=== PATIENT | male | born 1975 | race Two or more races ===

== ENCOUNTER → 2016-12-06 | Day surgery (SDC) | payer BC ==
[2016-12-06 07:49] LABS: BASOPHILS % (AUTO) 0.3 % (0.0-2.0); EOSINOPHILS # (AUTO) 0.3 /CMM (0.0-0.7); EOSINOPHILS % (AUTO) 3.3 % (0.0-6.0); HEMATOCRIT 50 % (39-51); HEMOGLOBIN 16.8 g/dL (13.5-17.5); LYMPHOCYTES % (AUTO) 12.3 % (20.0-44.0); MEAN CORPUSCULAR HEMOGLOBIN 27 PG (26.0-33.0); MEAN CORPUSCULAR HGB CONC 33 g/dl (31.0-36.0); MEAN CORPUSCULAR VOLUME 82 fL (80-96); MONOCYTES # (AUTO) 0.6 /CMM (0.1-1.30); MONOCYTES % (AUTO) 6.8 % (2.0-12.0); NEUTROPHILS # (AUTO) 6.5 /CMM (1.8-8.9); NEUTROPHILS % (AUTO) 77.3 % (43.0-81.0); PLATELET COUNT (AUTO) 269 /CMM (150-450); RDW COEFFICIENT OF VARIATION 13.3 (11.5-15.0); RED BLOOD CELL COUNT(AUTO) 6.14 MIL/uL (4.5-6.0); WHITE BLOOD COUNT (AUTO) 8.4 K/uL (4.3-11.0)
[2016-12-06 07:59] LABS: INR 0.98 (0.87-1.13); PROTHROMBIN TIME 10.6 SECS (9.5-12.7)
[2016-12-06 08:01] LABS: ALBUMIN 3.6 g/dL (3.4-5.0); BILIRUBIN,TOTAL 0.6 mg/dL (0.2-1.0); CALCIUM, SERUM 8.9 mg/dL (8.5-10.1); CREATININE 0.9 mg/dL (0.6-1.3); TOTAL PROTEIN, SERUM 7.6 g/dL (6.4-8.2)
== END ==
LOC: LAB 06:53
PROVIDERS: ATTEND Family Medicine
DX: D50.9 Iron deficiency anemia, unspecified (principal); I10 Essential (primary) hypertension; E55.9 Vitamin D deficiency, unspecified
CPT/HCPCS: 36415; 80053-TC; 80061-TC; 82306; 82728-TC; 82746; 83540-TC; 85025-TC; 85610-TC; 85730-TC

== ENCOUNTER 2017-03-08 06:50 | Outpatient (CLI) | payer BC ==
[2017-03-08 07:47] LABS: BASOPHILS % (AUTO) 0.3 % (0.0-2.0); EOSINOPHILS # (AUTO) 0.3 /CMM (0.0-0.7); EOSINOPHILS % (AUTO) 3.2 % (0.0-6.0); HEMATOCRIT 50 % (39-51); HEMOGLOBIN 16.9 g/dL (13.5-17.5); LYMPHOCYTES # (AUTO) 1.2 /CMM (0.8-4.8); LYMPHOCYTES % (AUTO) 13.8 % (20.0-44.0); MEAN CORPUSCULAR HEMOGLOBIN 28 PG (26.0-33.0); MEAN CORPUSCULAR HGB CONC 34 g/dl (31.0-36.0); MEAN CORPUSCULAR VOLUME 82 fL (80-96); MONOCYTES # (AUTO) 0.6 /CMM (0.1-1.30); MONOCYTES % (AUTO) 7.3 % (2.0-12.0); NEUTROPHILS # (AUTO) 6.7 /CMM (1.8-8.9); NEUTROPHILS % (AUTO) 75.4 % (43.0-81.0); PLATELET COUNT (AUTO) 268 /CMM (150-450); RDW COEFFICIENT OF VARIATION 13.3 (11.5-15.0); RED BLOOD CELL COUNT(AUTO) 6.02 MIL/uL (4.5-6.0); WHITE BLOOD COUNT (AUTO) 8.9 K/uL (4.3-11.0)
[2017-03-08 08:04] LABS: ALBUMIN 3.6 g/dL (3.4-5.0); BILIRUBIN,TOTAL 0.8 mg/dL (0.2-1.0); CALCIUM, SERUM 9.1 mg/dL (8.5-10.1); CREATININE 0.8 mg/dL (0.6-1.3); POTASSIUM 4.2 mmol/L (3.5-5.1); TOTAL PROTEIN, SERUM 7.7 g/dL (6.4-8.2)
[2017-03-08 08:15] LABS: THYROID STIMULATING HORMONE 1.22 uIU/mL (0.358-3.74)
== END 2017-03-08 23:59 | disposition home or self-care (01) ==
LOC: LAB 06:50
PROVIDERS: ATTEND Family Medicine
DX: D64.9 Anemia, unspecified (principal); I10 Essential (primary) hypertension
CPT/HCPCS: 36415; 80053-TC; 80061-TC; 82728-TC; 82746; 83540-TC; 84439-TC; 84443-TC; 85025-TC

== ENCOUNTER 2017-05-23 06:56 | Outpatient (CLI) | payer BC ==
[2017-05-23 07:51] LABS: BASOPHILS % (AUTO) 0.2 % (0.0-2.0); EOSINOPHILS # (AUTO) 0.3 /CMM (0.0-0.7); EOSINOPHILS % (AUTO) 3.1 % (0.0-6.0); HEMATOCRIT 47 % (39-51); HEMOGLOBIN 15.7 g/dL (13.5-17.5); LYMPHOCYTES % (AUTO) 11.1 % (20.0-44.0); MEAN CORPUSCULAR HEMOGLOBIN 27 PG (26.0-33.0); MEAN CORPUSCULAR HGB CONC 33 g/dl (31.0-36.0); MEAN CORPUSCULAR VOLUME 82 fL (80-96); MONOCYTES # (AUTO) 0.6 /CMM (0.1-1.30); NEUTROPHILS # (AUTO) 6.9 /CMM (1.8-8.9); NEUTROPHILS % (AUTO) 78.6 % (43.0-81.0); PLATELET COUNT (AUTO) 232 /CMM (150-450); RDW COEFFICIENT OF VARIATION 13.1 (11.5-15.0); RED BLOOD CELL COUNT(AUTO) 5.75 MIL/uL (4.5-6.0); WHITE BLOOD COUNT (AUTO) 8.7 K/uL (4.3-11.0)
[2017-05-23 08:27] LABS: ALBUMIN 3.6 g/dL (3.4-5.0); BILIRUBIN,TOTAL 0.4 mg/dL (0.2-1.0); CALCIUM, SERUM 8.4 mg/dL (8.5-10.1); CREATININE 0.8 mg/dL (0.6-1.3); POTASSIUM 3.9 mmol/L (3.5-5.1); TOTAL PROTEIN, SERUM 7.4 g/dL (6.4-8.2)
[2017-05-23 08:47] LABS: PROSTATE SPECIFIC ANTIGEN SCR 2.56 ng/mL (0.00-4.00)
[2017-05-24 08:13] LABS: AFP, TUMOR MARKER 2.9 ng/mL (0.0-8.3); CARCINOEMBRYONIC AG (CEA) 0.8 ng/mL (0.0-4.7)
== END 2017-05-23 23:59 | disposition home or self-care (01) ==
LOC: LAB 06:56
PROVIDERS: ATTEND Internal Medicine Gastroenterology
DX: D64.9 Anemia, unspecified (principal); R79.89 Other specified abnormal findings of blood chemistry
CPT/HCPCS: 36415; 80053-TC; 82105; 82378; 84153-TC; 85025-TC; 86301

== ENCOUNTER 2017-08-24 07:01 | Outpatient (CLI) | payer BC ==
[2017-08-24 08:35] LABS: BASOPHILS % (AUTO) 0.3 % (0.0-2.0); EOSINOPHILS # (AUTO) 0.3 /CMM (0.0-0.7); EOSINOPHILS % (AUTO) 2.9 % (0.0-6.0); HEMATOCRIT 48 % (39-51); HEMOGLOBIN 15.8 g/dL (13.5-17.5); LYMPHOCYTES # (AUTO) 1.1 /CMM (0.8-4.8); LYMPHOCYTES % (AUTO) 12.4 % (20.0-44.0); MEAN CORPUSCULAR HEMOGLOBIN 27 PG (26.0-33.0); MEAN CORPUSCULAR HGB CONC 33 g/dl (31.0-36.0); MEAN CORPUSCULAR VOLUME 81 fL (80-96); MONOCYTES # (AUTO) 0.7 /CMM (0.1-1.30); MONOCYTES % (AUTO) 7.4 % (2.0-12.0); NEUTROPHILS # (AUTO) 7.1 /CMM (1.8-8.9); PLATELET COUNT (AUTO) 261 /CMM (150-450); RDW COEFFICIENT OF VARIATION 13.1 (11.5-15.0); RED BLOOD CELL COUNT(AUTO) 5.86 MIL/uL (4.5-6.0); WHITE BLOOD COUNT (AUTO) 9.3 K/uL (4.3-11.0)
[2017-08-24 08:38] LABS: CALCIUM, SERUM 9.2 mg/dL (8.5-10.1); CREATININE 0.8 mg/dL (0.6-1.3); POTASSIUM 3.9 mmol/L (3.5-5.1)
[2017-08-24 09:42] LABS: PROSTATE SPECIFIC ANTIGEN SCR 2.67 ng/mL (0.00-4.00)
[2017-08-24 11:58] LABS: APPEARANCE,URINE CLEAR (CLEAR); BILIRUBIN,URINE NEGATIVE (NEGATIVE); BLOOD, URINE NEGATIVE Ery/uL (NEGATIVE); COLOR,URINE YELLOW (YELLOW); KETONES,URINE NEGATIVE (NEGATIVE); LEUKOCYTE ESTERASE ,URINE NEGATIVE (NEGATIVE); NITRITE, URINE NEGATIVE (NEGATIVE); PROTEIN,URINE NEGATIVE (NEGATIVE); UGLUCOSE NEGATIVE (NEGATIVE); UROBILINOGEN,URINE 0.2 EU/dL (0.2)
== END 2017-08-24 23:59 | disposition home or self-care (01) ==
LOC: LAB 07:01
PROVIDERS: ATTEND Family Medicine
DX: R73.9 Hyperglycemia, unspecified (principal); R31.21 Asymptomatic microscopic hematuria; D72.829 Elevated white blood cell count, unspecified
CPT/HCPCS: 36415; 80048-TC; 81000-TC; 84153-TC; 85025-TC; 87086-TC

== ENCOUNTER 2017-08-29 08:49 | Outpatient (CLI) | payer BC | END 2017-08-29 23:59 | disposition home or self-care (01) | LOC: US 08:49 | PROVIDERS: ATTEND Family Medicine | DX: N20.0 Calculus of kidney (principal); N28.1 Cyst of kidney, acquired | CPT/HCPCS: 76770-TC ==

== ENCOUNTER 2018-01-04 06:51 | Outpatient (CLI) | payer BC ==
[2018-01-04 07:55] LABS: BASOPHILS % (AUTO) 0.2 % (0.0-2.0); EOSINOPHILS % (AUTO) 2.4 % (0.0-6.0); HEMATOCRIT 48 % (39-51); LYMPHOCYTES # (AUTO) 1.1 /CMM (0.8-4.8); LYMPHOCYTES % (AUTO) 12.3 % (20.0-44.0); MEAN CORPUSCULAR HGB CONC 34 g/dl (31.0-36.0); MEAN CORPUSCULAR VOLUME 81 fL (80-96); MONOCYTES # (AUTO) 0.7 /CMM (0.1-1.30); MONOCYTES % (AUTO) 7.3 % (2.0-12.0); NEUTROPHILS # (AUTO) 6.9 /CMM (1.8-8.9); NEUTROPHILS % (AUTO) 77.8 % (43.0-81.0); PLATELET COUNT (AUTO) 246 /CMM (150-450); RDW COEFFICIENT OF VARIATION 13.3 (11.5-15.0); RED BLOOD CELL COUNT(AUTO) 5.88 MIL/uL (4.5-6.0); WHITE BLOOD COUNT (AUTO) 8.9 K/uL (4.3-11.0)
[2018-01-04 08:22] LABS: ALBUMIN 3.5 g/dL (3.4-5.0); BILIRUBIN,TOTAL 0.5 mg/dL (0.2-1.0); CALCIUM, SERUM 8.9 mg/dL (8.5-10.1); CREATININE 0.9 mg/dL (0.6-1.3); POTASSIUM 3.6 mmol/L (3.5-5.1); TOTAL PROTEIN, SERUM 7.4 g/dL (6.4-8.2)
[2018-01-04 08:30] LABS: THYROID STIMULATING HORMONE 1.87 uIU/mL (0.358-3.74)
[2018-01-04 09:09] LABS: APPEARANCE,URINE CLEAR (CLEAR); BILIRUBIN,URINE NEGATIVE (NEGATIVE); BLOOD, URINE NEGATIVE Ery/uL (NEGATIVE); COLOR,URINE YELLOW (YELLOW); KETONES,URINE NEGATIVE (NEGATIVE); LEUKOCYTE ESTERASE ,URINE NEGATIVE (NEGATIVE); NITRITE, URINE NEGATIVE (NEGATIVE); PROTEIN,URINE NEGATIVE (NEGATIVE); UGLUCOSE NEGATIVE (NEGATIVE); UROBILINOGEN,URINE 0.2 EU/dL (0.2)
== END 2018-01-04 23:59 | disposition home or self-care (01) ==
LOC: LAB 06:51
PROVIDERS: ATTEND Family Medicine
DX: I10 Essential (primary) hypertension (principal)
CPT/HCPCS: 36415; 80053-TC; 80061-TC; 81000-TC; 82306; 84439-TC; 84443-TC; 85025-TC

== ENCOUNTER 2020-08-09 10:29 | Emergency (ER) | payer BC, OTHER ==
[~2020-08-09] VITALS: Ht 165.1 cm; Wt 96.2 kg
[2020-08-09 10:36] VITALS: BP 180/83
== END 2020-08-09 10:49 | disposition home or self-care (01) ==
LOC: ER 10:33
DX: Z20.828 Contact with and (suspected) exposure to other viral communicable diseases (principal); F84.0 Autistic disorder
CPT/HCPCS: 99283; C9803; U0003

== ENCOUNTER 2021-02-07 08:06 | Outpatient (CLI) | payer BC | END 2021-02-07 23:59 | disposition home or self-care (01) | LOC: LAB 08:06 | PROVIDERS: ATTEND Family Medicine | DX: Z76.89 Persons encountering health services in other specified circumstances (principal); Z20.822 Contact with and (suspected) exposure to COVID-19 | CPT/HCPCS: C9803; U0003 ==

== ENCOUNTER 2022-06-12 10:49 | Emergency (ER) | payer BC, OTHER ==
[~2022-06-12] VITALS: Ht 165.1 cm; Wt 108.9 kg
--- NOTE | 2022-06-12 11:15 | NUR ---
BIBS C/O GENERALIZED RASH X 1 MONTH. AMBULATORY, AAOX4, PLACED ON BED, BREATHING EVEN AND UNLABORED.
--- NOTE | 2022-06-12 11:25 | NUR ---
AT BED SIDE
[2022-06-12] MEDS ORDERED: PERM60CR6 TP ×2 (11:28→12:00)
[2022-06-12] MEDS ORDERED: DIPH25CA83 PO (11:28)
[2022-06-12] MEDS ORDERED: DIPH25TA25 PO (12:00)
--- NOTE | 2022-06-12 12:05 | NUR ---
Patient discharged to home in stable condition. Written and verbal after care instructions given. Patient verbalizes understanding of instruction.
[2022-06-12 12:22] VITALS: BP 139/79
== END 2022-06-12 12:05 | disposition home or self-care (01) ==
LOC: ER 10:55
DX: L30.9 Dermatitis, unspecified (principal); I10 Essential (primary) hypertension; Z60.2 Problems related to living alone

== ENCOUNTER 2023-10-15 13:54 | Inpatient (IN) | payer BC, OTHER ==
[~2023-10-15] VITALS: Ht 165.1 cm; Wt 87.1 kg
[~2023-10-15 13:54] MED LIST: DIPH25CA83 PO; DIPH25TA25 PO; PERM60CR6 TP
[2023-10-15 15:25] LABS: INR 1.25 (0.91-1.10); PROTHROMBIN TIME 13.1 SECS (9.2-11.1)
[2023-10-15 15:31] LABS: BASOPHILS % (AUTO) 0.6 % (0.0-2.0); EOSINOPHILS % (AUTO) 0.2 % (0.0-6.0); LYMPHOCYTES # (AUTO) 0.5 K/uL (0.8-4.8); LYMPHOCYTES % (AUTO) 7.1 % (20.0-44.0); MEAN CORPUSCULAR HEMOGLOBIN 12 PG (26.0-33.0); MEAN CORPUSCULAR HGB CONC 24 g/dl (31.0-36.0); MEAN CORPUSCULAR VOLUME 47 fL (80-96); MONOCYTES # (AUTO) 0.5 K/uL (0.1-1.30); MONOCYTES % (AUTO) 6.4 % (2.0-12.0); NEUTROPHILS # (AUTO) 6.7 K/uL (1.8-8.9); NEUTROPHILS % (AUTO) 85.7 % (43.0-81.0); PLATELET COUNT (AUTO) 264 K/uL (150-450); RED BLOOD CELL COUNT(AUTO) 2.77 MIL/uL (4.5-6.0); RED CELL DISTRIBUTION WIDTH 22.8 % (11.5-15.0); WHITE BLOOD COUNT (AUTO) 7.8 K/uL (4.3-11.0)
[2023-10-15 15:38] LABS: ALANINE AMINOTRANSFERASE 6 U/L (12-78); ALBUMIN 2.9 g/dL (3.4-5.0); ALKALINE PHOSPHATASE 51 U/L (46-116); ASPARTATE AMINOTRANSFERASE 7 U/L (15-37); BILIRUBIN,DIRECT 0.1 mg/dL (0.0-0.2); BILIRUBIN,TOTAL 0.4 mg/dL (0.2-1.0); CALCIUM, SERUM 8.3 mg/dL (8.5-10.1); CARBON DIOXIDE 21 mmol/L (21-32); CHLORIDE 103 mmol/L (98-107); CREATININE 0.9 mg/dL (0.6-1.3); GLUCOSE 173 mg/dL (74-106); LIPASE 24 U/L (16-77); POTASSIUM 3.5 mmol/L (3.5-5.1); SODIUM SERUM 137 mmol/L (136-145); TOTAL PROTEIN, SERUM 6.7 g/dL (6.4-8.2); UREA NITROGEN, BLOOD 10 mg/dL (7-18)
[2023-10-15 15:40] LABS: HEMOGLOBIN 3.2 g/dL (13.5-17.5)
[2023-10-15 15:41] LABS: HEMATOCRIT 13 % (39-51)
[2023-10-15 16:58] LABS: THYROID STIMULATING HORMONE 1.484 uIU/mL (0.358-3.74)
[2023-10-15] MEDS ORDERED: Z GUARD REMEDY 4 OZ OINT TP PRN (18:00)
[2023-10-15] MEDS ORDERED: ONDANSETRON HCL/PF 4 MG/2 ML VIAL IVP PRN (18:00)
[2023-10-15] MEDS ORDERED: ACETAMINOPHEN 325 MG TABLET PO PRN (18:00)
[2023-10-15] MEDS ORDERED: MAGNESIUM HYDROXIDE 30 ML UDC PO PRN (18:00)
[2023-10-15 19:18] LABS: ANISOCYTOSIS 1+; BAND % (MANUAL) 1 % (0.0-5.0); EOSINOPHILS % (MANUAL) 2 % (0-4); HYPOCHROMASIA 1+; LYMPHOCYTES % (MANUAL) 6 % (16-48); MONOCYTES % (MANUAL) 3 % (0-11.0); NEUTROPHILS % (MANUAL) 88 (42-76); PLATELET ESTIMATE ADEQUATE
[2023-10-15 19:19] LABS: OVALOCYTES 1+; ROULEAUX 1+; TARGET CELLS 1+
[2023-10-15] MEDS ORDERED: PEG 3350/NA SULF,BICARB,CL/KCL 4,000 ML BOTTLE PO ONE (19:30)
[2023-10-15 20:00] VITALS: BP 129/65; TEMP 99.3; O2SAT 97
[2023-10-15] MEDS: SOD FERRIC GLUC 125 MG in IV NS 0.9% 100 ML IV SCH (21:02)
[2023-10-15] MEDS ORDERED: diphenhydrAMINE HCL 25 MG CAPSULE PO ONE (23:00)
[2023-10-15] MEDS ORDERED: FAMOTIDINE (20 MG) 20 MG TABLET PO ONE (23:00)
[2023-10-16] VITALS (17 sets, daily range): BP systolic 100–165; BP diastolic 49–83; TEMP 98–99.3; O2SAT 95–99
[2023-10-16] MEDS: PANTOPRAZOLE 40 MG TABLET.DR PO SCH (07:38)
[2023-10-16 11:15] LABS: CALCIUM, SERUM 8.2 mg/dL (8.5-10.1); CREATININE 0.5 mg/dL (0.6-1.3); MAGNESIUM 2.2 mg/dL (1.8-2.4); PHOSPHORUS 2.8 mg/dL (2.5-4.9); POTASSIUM 3.8 mmol/L (3.5-5.1)
[2023-10-16 11:46] LABS: BASOPHILS % (AUTO) 0.3 % (0.0-2.0); EOSINOPHILS % (AUTO) 0.3 % (0.0-6.0); HEMATOCRIT 23 % (39-51); LYMPHOCYTES # (AUTO) 0.8 K/uL (0.8-4.8); LYMPHOCYTES % (AUTO) 8.4 % (20.0-44.0); MEAN CORPUSCULAR HEMOGLOBIN 18 PG (26.0-33.0); MEAN CORPUSCULAR HGB CONC 29 g/dl (31.0-36.0); MEAN CORPUSCULAR VOLUME 62 fL (80-96); MONOCYTES # (AUTO) 0.7 K/uL (0.1-1.30); MONOCYTES % (AUTO) 6.9 % (2.0-12.0); NEUTROPHILS # (AUTO) 8.5 K/uL (1.8-8.9); NEUTROPHILS % (AUTO) 84.1 % (43.0-81.0); PLATELET COUNT (AUTO) 258 K/uL (150-450); RED BLOOD CELL COUNT(AUTO) 3.75 MIL/uL (4.5-6.0); RED CELL DISTRIBUTION WIDTH 41.7 % (11.5-15.0); WHITE BLOOD COUNT (AUTO) 10.1 K/uL (4.3-11.0)
[2023-10-16 11:50] LABS: HEMOGLOBIN 6.8 g/dL (13.5-17.5)
[2023-10-16 13:36] LABS: ANISOCYTOSIS 1+; BASOPHILS % (MANUAL) 0 % (0.0-2.0); EOSINOPHILS % (MANUAL) 0 % (0-4); HYPOCHROMASIA 2+; LYMPHOCYTES % (MANUAL) 11 % (16-48); MONOCYTES % (MANUAL) 5 % (0-11.0); NEUTROPHILS % (MANUAL) 84 (42-76); OVALOCYTES 1+; PLATELET ESTIMATE ADEQUATE
[2023-10-16] MEDS: SOD FERRIC GLUC 125 MG in IV NS 0.9% 100 ML IV SCH (13:57)
[2023-10-16] MEDS ORDERED: ANESTHESIA TRAY IN PYXIS 1 EA TRAY MC ONE (17:45)
[2023-10-16] MEDS ORDERED: METHYLENE BLUE 10 ML VIAL ONE (20:39)
[2023-10-17] VITALS: BP 138/74; TEMP 98.1; O2SAT 99
[2023-10-17 00:16] VITALS: BP 138/74; TEMP 98.1; O2SAT 99
[2023-10-17 05:03] VITALS: BP 118/63; TEMP 97.9; O2SAT 98
[2023-10-17 07:00] VITALS: BP 127/72; TEMP 98.2; O2SAT 95
[2023-10-17 07:30] LABS: BASOPHILS % (AUTO) 0.3 % (0.0-2.0); EOSINOPHILS # (AUTO) 0.1 K/uL (0.0-0.7); EOSINOPHILS % (AUTO) 0.6 % (0.0-6.0); HEMATOCRIT 28 % (39-51); HEMOGLOBIN 8.4 g/dL (13.5-17.5); LYMPHOCYTES # (AUTO) 0.9 K/uL (0.8-4.8); MEAN CORPUSCULAR HEMOGLOBIN 19 PG (26.0-33.0); MEAN CORPUSCULAR HGB CONC 30 g/dl (31.0-36.0); MEAN CORPUSCULAR VOLUME 65 fL (80-96); MONOCYTES # (AUTO) 0.7 K/uL (0.1-1.30); MONOCYTES % (AUTO) 6.4 % (2.0-12.0); NEUTROPHILS # (AUTO) 8.6 K/uL (1.8-8.9); NEUTROPHILS % (AUTO) 83.7 % (43.0-81.0); PLATELET COUNT (AUTO) 258 K/uL (150-450); RED BLOOD CELL COUNT(AUTO) 4.33 MIL/uL (4.5-6.0); RED CELL DISTRIBUTION WIDTH 41.6 % (11.5-15.0); WHITE BLOOD COUNT (AUTO) 10.2 K/uL (4.3-11.0)
[2023-10-17 07:49] LABS: CALCIUM, SERUM 8.5 mg/dL (8.5-10.1); CREATININE 0.6 mg/dL (0.6-1.3); MAGNESIUM 2.1 mg/dL (1.8-2.4); PHOSPHORUS 3.3 mg/dL (2.5-4.9); POTASSIUM 3.9 mmol/L (3.5-5.1)
[2023-10-17] MEDS: PANTOPRAZOLE 40 MG TABLET.DR PO SCH (08:31)
[2023-10-17 11:34] LABS: ANISOCYTOSIS 1+; BASOPHILS % (MANUAL) 0 % (0.0-2.0); EOSINOPHILS % (MANUAL) 2 % (0-4); HYPOCHROMASIA 1+; LYMPHOCYTES % (MANUAL) 10 % (16-48); MONOCYTES % (MANUAL) 7 % (0-11.0); NEUTROPHILS % (MANUAL) 81 (42-76); OVALOCYTES 1+; PLATELET ESTIMATE ADEQUATE
[2023-10-17] MEDS: SOD FERRIC GLUC 125 MG in IV NS 0.9% 100 ML IV SCH (14:21)
[2023-10-17 15:40] LABS: HEMOGLOBIN 8.7 g/dL (13.5-17.5)
[2023-10-17 16:00] VITALS: BP 140/69; TEMP 98.4; O2SAT 96
[2023-10-17 16:33] LABS: THYROID STIMULATING HORMONE 1.317 uIU/mL (0.358-3.74)
[2023-10-17 20:00] VITALS: BP 131/69; TEMP 97.9; O2SAT 96
[2023-10-18] VITALS (13 sets, daily range): BP systolic 121–140; BP diastolic 66–100; TEMP 97.6–98.8; O2SAT 90–98
[2023-10-18 07:10] LABS: OCCULT BLOOD STOOL NEGATIVE (NEGATIVE)
[2023-10-18 07:12] LABS: BASOPHILS % (AUTO) 0.5 % (0.0-2.0); EOSINOPHILS # (AUTO) 0.2 K/uL (0.0-0.7); EOSINOPHILS % (AUTO) 2.1 % (0.0-6.0); HEMATOCRIT 29 % (39-51); HEMOGLOBIN 8.6 g/dL (13.5-17.5); LYMPHOCYTES % (AUTO) 10.4 % (20.0-44.0); MEAN CORPUSCULAR HEMOGLOBIN 20 PG (26.0-33.0); MEAN CORPUSCULAR HGB CONC 30 g/dl (31.0-36.0); MEAN CORPUSCULAR VOLUME 66 fL (80-96); MONOCYTES # (AUTO) 0.8 K/uL (0.1-1.30); MONOCYTES % (AUTO) 8.2 % (2.0-12.0); NEUTROPHILS # (AUTO) 7.3 K/uL (1.8-8.9); NEUTROPHILS % (AUTO) 78.8 % (43.0-81.0); PLATELET COUNT (AUTO) 235 K/uL (150-450); RED BLOOD CELL COUNT(AUTO) 4.39 MIL/uL (4.5-6.0); RED CELL DISTRIBUTION WIDTH 41.9 % (11.5-15.0); WHITE BLOOD COUNT (AUTO) 9.2 K/uL (4.3-11.0)
[2023-10-18 07:30] LABS: CALCIUM, SERUM 6.9 mg/dL (8.5-10.1); CREATININE 0.6 mg/dL (0.6-1.3); MAGNESIUM 1.9 mg/dL (1.8-2.4); PHOSPHORUS 4.4 mg/dL (2.5-4.9); POTASSIUM 3.5 mmol/L (3.5-5.1)
[2023-10-18] MEDS: PANTOPRAZOLE 40 MG TABLET.DR PO SCH (08:40)
[2023-10-18] MEDS ORDERED: LIDOCAINE 1%-EPI 1:100,000 20 ML VIAL ONE (10:29)
[2023-10-18] MEDS ORDERED: BUPIVACAINE 0.5 % PF 150 MG/30 ML VIAL ONE (10:30)
[2023-10-18 11:11] LABS: IMMUNOGLOBULIN A, SERUM 121 mg/dL (90-386); IMMUNOGLOBULIN G, SERUM 745 mg/dL (603-1613); IMMUNOGLOBULIN M, SERUM 132 mg/dL (20-172)
[2023-10-18 12:02] LABS: BASOPHILS % (MANUAL) 0 % (0.0-2.0); EOSINOPHILS % (MANUAL) 1 % (0-4); LYMPHOCYTES % (MANUAL) 8 % (16-48); MONOCYTES % (MANUAL) 6 % (0-11.0); NEUTROPHILS % (MANUAL) 85 (42-76)
[2023-10-18 12:03] LABS: ANISOCYTOSIS 1+; HYPOCHROMASIA 1+; OVALOCYTES 1+; PLATELET ESTIMATE ADEQUATE
[2023-10-18 12:07] LABS: *SPE A/G RATIO 0.9 (0.7-1.7); *SPE ALBUMIN 2.6 g/dL (2.9-4.4); *SPE ALPHA-1-GLOBULIN 0.4 g/dL (0.0-0.4); *SPE ALPHA-2-GLOBULIN 0.7 g/dL (0.4-1.0); *SPE BETA GLOBULIN 0.9 g/dL (0.7-1.3); *SPE GLOBULIN, TOTAL 2.9 g/dL (2.2-3.9); *SPE M-SPIKE Not Observed g/dL (Not Observed); *SPE PROTEIN TOTAL 5.5 g/dL (6.0-8.5); *SPEGAMMA GLOBULIN 0.9 g/dL (0.4-1.8)
[2023-10-18] MEDS ORDERED: ANESTHESIA TRAY IN PYXIS 1 EA TRAY MC ONE (12:08)
[2023-10-18] MEDS ORDERED: FENTANYL PF 250MCG/5ML AMPUL ONE ×2 (12:29→13:42)
[2023-10-18] MEDS ORDERED: ROCURONIUM BROMIDE 50 MG/5 ML ONE ×2 (12:30→13:24)
[2023-10-18] MEDS ORDERED: FAMOTIDINE/PF INJ 20 MG/2 ML VIAL IV ONE (12:30)
[2023-10-18] MEDS ORDERED: MIDAZOLAM HCL 2 MG/2ML VIAL ONE (12:30)
[2023-10-18] MEDS ORDERED: HYDROMORPHONE INJ 2 MG/ML DISP.SYRIN ONE (12:30)
[2023-10-18] MEDS ORDERED: METRONIDAZOLE 500MG/ NS 100ML 100 ML IV ONE (13:08)
[2023-10-18] MEDS ORDERED: PHYTONADIONE INJ 10 MG/1 ML AMPUL ONE (13:19)
[2023-10-18] MEDS ORDERED: TRANEXAMIC ACID 1,000 MG/10 ML VIAL ONE (13:24)
[2023-10-18] MEDS ORDERED: CIPROFLOXACIN IV RTU 400 MG in PREMIX 1 EA IV ONE (13:30)
[2023-10-18] MEDS ORDERED: ALBUMIN 25% 50 ML IV ONE (13:42)
[2023-10-18] MEDS: SOD FERRIC GLUC 125 MG in IV NS 0.9% 100 ML IV SCH (14:00)
[2023-10-18] MEDS ORDERED: BACITRACIN ZINC OINT (15 GM) 15 GM TUBE TP ONE (15:06)
[2023-10-18] MEDS ORDERED: IV NS 0.9% 250 ML IV PRN (17:00)
[2023-10-18] MEDS: HYDROMORPHONE INJ 2 MG/ML DISP.SYRIN IV PRN ×2 (18:11→21:26)
[2023-10-18] MEDS ORDERED: PIPERACILLIN /TAZOBACTAM 3.375 G in IV D5W 100 ML IV SCH (21:00)
[2023-10-18] MEDS: PIPERACILLIN /TAZOBACTAM 3.375 G in IV D5W 100 ML IV SCH (21:46)
[2023-10-19] VITALS (27 sets, daily range): BP systolic 133–149; BP diastolic 68–86; TEMP 98.2–98.7; O2SAT 90–97
[2023-10-19 01:07] LABS: FOLIC ACID 9.7 ng/mL (>3.0)
[2023-10-19] MEDS: IV LR 1000 ML 1,000 ML IV SCH ×4 (01:25→21:30)
[2023-10-19] MEDS: PIPERACILLIN /TAZOBACTAM 3.375 G in IV D5W 100 ML IV SCH ×3 (04:23→20:11)
[2023-10-19] MEDS: HYDROMORPHONE INJ 2 MG/ML DISP.SYRIN IV PRN ×4 (05:02→17:35)
[2023-10-19] MEDS ORDERED: SODIUM BICARBONATE SYR 50 MEQ/50 ML DISP.SYRIN ONE (06:33)
[2023-10-19] MEDS: PANTOPRAZOLE 40 MG TABLET.DR PO SCH (07:30)
[2023-10-19 07:44] LABS: BASOPHILS % (AUTO) 0.2 % (0.0-2.0); HEMATOCRIT 33 % (39-51); HEMOGLOBIN 9.7 g/dL (13.5-17.5); LYMPHOCYTES % (AUTO) 7.9 % (20.0-44.0); MEAN CORPUSCULAR HEMOGLOBIN 20 PG (26.0-33.0); MEAN CORPUSCULAR HGB CONC 30 g/dl (31.0-36.0); MEAN CORPUSCULAR VOLUME 69 fL (80-96); MONOCYTES # (AUTO) 0.9 K/uL (0.1-1.30); MONOCYTES % (AUTO) 6.9 % (2.0-12.0); NEUTROPHILS # (AUTO) 10.6 K/uL (1.8-8.9); PLATELET COUNT (AUTO) 251 K/uL (150-450); RED BLOOD CELL COUNT(AUTO) 4.77 MIL/uL (4.5-6.0); RED CELL DISTRIBUTION WIDTH 41.7 % (11.5-15.0); WHITE BLOOD COUNT (AUTO) 12.5 K/uL (4.3-11.0)
[2023-10-19 08:15] LABS: CALCIUM, SERUM 8.4 mg/dL (8.5-10.1); CREATININE 0.7 mg/dL (0.6-1.3); MAGNESIUM 1.9 mg/dL (1.8-2.4); PHOSPHORUS 4.1 mg/dL (2.5-4.9); POTASSIUM 3.8 mmol/L (3.5-5.1)
[2023-10-19] MEDS: PANTOPRAZOLE 40 MG VIAL IV SCH (11:34)
[2023-10-19] MEDS: SOD FERRIC GLUC 125 MG in IV NS 0.9% 100 ML IV SCH (14:40)
[2023-10-20] VITALS (24 sets, daily range): BP systolic 136–153; BP diastolic 63–80; TEMP 98.2–98.8; O2SAT 90–97
[2023-10-20] MEDS: IV LR 1000 ML 1,000 ML IV SCH ×2 (00:11→05:28)
[2023-10-20] MEDS: HYDROMORPHONE INJ 2 MG/ML DISP.SYRIN IV PRN (02:31)
[2023-10-20 04:44] LABS: BASOPHILS % (AUTO) 0.4 % (0.0-2.0); EOSINOPHILS # (AUTO) 0.2 K/uL (0.0-0.7); EOSINOPHILS % (AUTO) 1.9 % (0.0-6.0); HEMATOCRIT 32 % (39-51); HEMOGLOBIN 9.5 g/dL (13.5-17.5); LYMPHOCYTES # (AUTO) 0.9 K/uL (0.8-4.8); MEAN CORPUSCULAR HEMOGLOBIN 21 PG (26.0-33.0); MEAN CORPUSCULAR HGB CONC 30 g/dl (31.0-36.0); MEAN CORPUSCULAR VOLUME 71 fL (80-96); MONOCYTES # (AUTO) 0.8 K/uL (0.1-1.30); MONOCYTES % (AUTO) 7.5 % (2.0-12.0); NEUTROPHILS # (AUTO) 8.2 K/uL (1.8-8.9); NEUTROPHILS % (AUTO) 81.2 % (43.0-81.0); PLATELET COUNT (AUTO) 215 K/uL (150-450); RED CELL DISTRIBUTION WIDTH 42.3 % (11.5-15.0); WHITE BLOOD COUNT (AUTO) 10.1 K/uL (4.3-11.0)
[2023-10-20] MEDS: PIPERACILLIN /TAZOBACTAM 3.375 G in IV D5W 100 ML IV SCH ×2 (04:46→12:35)
[2023-10-20 05:00] LABS: CALCIUM, SERUM 8.6 mg/dL (8.5-10.1); CREATININE 0.8 mg/dL (0.6-1.3); MAGNESIUM 1.9 mg/dL (1.8-2.4); PHOSPHORUS 2.9 mg/dL (2.5-4.9); POTASSIUM 3.8 mmol/L (3.5-5.1)
[2023-10-20] MEDS: PANTOPRAZOLE 40 MG VIAL IV SCH (09:08)
[2023-10-20] MEDS: IV LR 1000 ML 1,000 ML IV PRN ×2 (16:03→20:22)
[2023-10-20] MEDS ORDERED: ZOLPIDEM TARTRATE 5 MG TABLET PO PRN ×2 (21:00)
[2023-10-21] VITALS (21 sets, daily range): BP systolic 126–146; BP diastolic 68–82; TEMP 98–98.7; O2SAT 84–98
[2023-10-21] MEDS: IV LR 1000 ML 1,000 ML IV PRN ×4 (02:44→23:28)
[2023-10-21] MEDS: HYDROMORPHONE INJ 2 MG/ML DISP.SYRIN IV PRN ×2 (02:52→08:50)
[2023-10-21 05:15] LABS: BASOPHILS % (AUTO) 0.4 % (0.0-2.0); EOSINOPHILS # (AUTO) 0.3 K/uL (0.0-0.7); EOSINOPHILS % (AUTO) 3.5 % (0.0-6.0); HEMATOCRIT 34 % (39-51); HEMOGLOBIN 9.9 g/dL (13.5-17.5); LYMPHOCYTES % (AUTO) 9.9 % (20.0-44.0); MEAN CORPUSCULAR HEMOGLOBIN 21 PG (26.0-33.0); MEAN CORPUSCULAR HGB CONC 30 g/dl (31.0-36.0); MEAN CORPUSCULAR VOLUME 71 fL (80-96); MONOCYTES # (AUTO) 0.6 K/uL (0.1-1.30); MONOCYTES % (AUTO) 6.5 % (2.0-12.0); NEUTROPHILS # (AUTO) 7.7 K/uL (1.8-8.9); NEUTROPHILS % (AUTO) 79.7 % (43.0-81.0); PLATELET COUNT (AUTO) 218 K/uL (150-450); RED BLOOD CELL COUNT(AUTO) 4.71 MIL/uL (4.5-6.0); RED CELL DISTRIBUTION WIDTH 43.2 % (11.5-15.0); WHITE BLOOD COUNT (AUTO) 9.6 K/uL (4.3-11.0)
[2023-10-21 05:47] LABS: CALCIUM, SERUM 8.4 mg/dL (8.5-10.1); CREATININE 0.5 mg/dL (0.6-1.3); MAGNESIUM 1.7 mg/dL (1.8-2.4); PHOSPHORUS 3.4 mg/dL (2.5-4.9); POTASSIUM 3.5 mmol/L (3.5-5.1)
[2023-10-21] MEDS: PANTOPRAZOLE 40 MG VIAL IV SCH (08:50)
[2023-10-21] MEDS: Magnesium 1GM/D5W 100ML PREMIX 100 ML IV SCH ×2 (10:02→11:30)
[2023-10-22] MEDS: IV LR 1000 ML 1,000 ML IV PRN ×3 (05:49→20:18)
[2023-10-22 07:30] VITALS: BP 141/86; TEMP 97.9; O2SAT 96
[2023-10-22 07:31] LABS: BASOPHILS % (AUTO) 0.3 % (0.0-2.0); EOSINOPHILS # (AUTO) 0.4 K/uL (0.0-0.7); HEMATOCRIT 36 % (39-51); HEMOGLOBIN 10.7 g/dL (13.5-17.5); LYMPHOCYTES # (AUTO) 0.8 K/uL (0.8-4.8); LYMPHOCYTES % (AUTO) 10.4 % (20.0-44.0); MEAN CORPUSCULAR HEMOGLOBIN 22 PG (26.0-33.0); MEAN CORPUSCULAR HGB CONC 30 g/dl (31.0-36.0); MEAN CORPUSCULAR VOLUME 74 fL (80-96); MONOCYTES # (AUTO) 0.5 K/uL (0.1-1.30); MONOCYTES % (AUTO) 6.3 % (2.0-12.0); NEUTROPHILS # (AUTO) 6.2 K/uL (1.8-8.9); PLATELET COUNT (AUTO) 223 K/uL (150-450); RED BLOOD CELL COUNT(AUTO) 4.86 MIL/uL (4.5-6.0); RED CELL DISTRIBUTION WIDTH 43.1 % (11.5-15.0)
[2023-10-22 07:36] LABS: CALCIUM, SERUM 8.1 mg/dL (8.5-10.1); CREATININE 0.5 mg/dL (0.6-1.3); PHOSPHORUS 3.3 mg/dL (2.5-4.9); POTASSIUM 3.5 mmol/L (3.5-5.1)
[2023-10-22 08:05] LABS: FERRITIN 125 ng/mL (8-388)
[2023-10-22 08:30] LABS: IRON, SERUM 23 ug/dl (50-175); TOTAL IRON BINDING CAPACITY 189 ug/dl (250-450)
[2023-10-22 08:43] LABS: ANISOCYTOSIS 1+; BASOPHILS % (MANUAL) 0 % (0.0-2.0); EOSINOPHILS % (MANUAL) 0 % (0-4); HYPOCHROMASIA 1+; LYMPHOCYTES % (MANUAL) 14 % (16-48); MONOCYTES % (MANUAL) 5 % (0-11.0); NEUTROPHILS % (MANUAL) 81 (42-76); OVALOCYTES 1+; PLATELET ESTIMATE ADEQUATE
[2023-10-22] MEDS: PANTOPRAZOLE 40 MG VIAL IV SCH (09:41)
[2023-10-22] MEDS: DOCUSATE SODIUM 100 MG CAPSULE PO SCH ×2 (09:41→17:38)
[2023-10-22] MEDS: SOD FERRIC GLUC 125 MG in IV NS 0.9% 100 ML IV SCH (15:01)
[2023-10-22 16:00] VITALS: BP 139/83; TEMP 98.1; O2SAT 96
[2023-10-22 20:00] VITALS: BP 142/70; TEMP 98.1; O2SAT 95; O2SAT 96
[2023-10-23] MEDS: IV LR 1000 ML 1,000 ML IV PRN ×3 (02:44→18:36)
[2023-10-23 08:00] VITALS: BP 137/80; TEMP 98; O2SAT 95
[2023-10-23] MEDS: DOCUSATE SODIUM 100 MG CAPSULE PO SCH ×2 (08:29→16:06)
[2023-10-23] MEDS: PANTOPRAZOLE 40 MG VIAL IV SCH (08:29)
[2023-10-23] MEDS: SOD FERRIC GLUC 125 MG in IV NS 0.9% 100 ML IV SCH (14:42)
[2023-10-23 16:00] VITALS: BP 129/75; TEMP 97.9; O2SAT 95
[2023-10-23 20:00] VITALS: BP 135/81; TEMP 98; O2SAT 96
[2023-10-23 23:39] VITALS: BP 135/81; TEMP 98; O2SAT 95
[2023-10-24] MEDS: IV LR 1000 ML 1,000 ML IV PRN ×2 (01:27→08:58)
[2023-10-24 04:00] VITALS: BP 131/77; TEMP 97.8; O2SAT 95
[2023-10-24 07:02] LABS: BASOPHILS % (AUTO) 0.5 % (0.0-2.0); EOSINOPHILS # (AUTO) 0.6 K/uL (0.0-0.7); EOSINOPHILS % (AUTO) 8.2 % (0.0-6.0); HEMATOCRIT 34 % (39-51); HEMOGLOBIN 10.5 g/dL (13.5-17.5); LYMPHOCYTES # (AUTO) 0.9 K/uL (0.8-4.8); LYMPHOCYTES % (AUTO) 13.9 % (20.0-44.0); MEAN CORPUSCULAR HEMOGLOBIN 23 PG (26.0-33.0); MEAN CORPUSCULAR HGB CONC 31 g/dl (31.0-36.0); MEAN CORPUSCULAR VOLUME 74 fL (80-96); MONOCYTES # (AUTO) 0.5 K/uL (0.1-1.30); MONOCYTES % (AUTO) 7.7 % (2.0-12.0); NEUTROPHILS # (AUTO) 4.8 K/uL (1.8-8.9); NEUTROPHILS % (AUTO) 69.7 % (43.0-81.0); PLATELET COUNT (AUTO) 188 K/uL (150-450); RED BLOOD CELL COUNT(AUTO) 4.63 MIL/uL (4.5-6.0); RED CELL DISTRIBUTION WIDTH 41.9 % (11.5-15.0); WHITE BLOOD COUNT (AUTO) 6.8 K/uL (4.3-11.0)
[2023-10-24 07:30] VITALS: BP 135/84; TEMP 98.7; O2SAT 95
[2023-10-24 07:39] LABS: CALCIUM, SERUM 7.9 mg/dL (8.5-10.1); CREATININE 0.6 mg/dL (0.6-1.3); MAGNESIUM 1.9 mg/dL (1.8-2.4); PHOSPHORUS 3.6 mg/dL (2.5-4.9); POTASSIUM 3.2 mmol/L (3.5-5.1)
[2023-10-24] MEDS: PANTOPRAZOLE 40 MG VIAL IV SCH (08:12)
[2023-10-24] MEDS: DOCUSATE SODIUM 100 MG CAPSULE PO SCH ×2 (08:13→16:21)
[2023-10-24 10:02] LABS: ANISOCYTOSIS 2+; EOSINOPHILS % (MANUAL) 9 % (0-4); HYPOCHROMASIA 1+; LYMPHOCYTES % (MANUAL) 6 % (16-48); MONOCYTES % (MANUAL) 9 % (0-11.0); NEUTROPHILS % (MANUAL) 76 (42-76); PLATELET ESTIMATE ADEQUATE
[2023-10-24] MEDS: POTASSIUM CHLORIDE 20 MEQ TAB.PRT.SR PO SCH ×2 (10:20→12:02)
[2023-10-24] MEDS ORDERED: PANTOPRAZOLE 40 MG TABLET.DR PO SCH (10:30)
[2023-10-24 12:00] VITALS: BP 132/77; TEMP 98.3; O2SAT 95
[2023-10-24] MEDS: SOD FERRIC GLUC 125 MG in IV NS 0.9% 100 ML IV SCH (15:06)
[2023-10-24 16:27] VITALS: BP 141/77; TEMP 98.1; O2SAT 95
== END 2023-10-24 19:40 | DRG 330 ==
LOC: ER 13:58 → TELE 17:57 → ICU 10-18 15:54 → MED 10-21 17:41
PROVIDERS: ADMIT Nurse Practitioner Family; ATTEND Nurse Practitioner Family
PROC: 30233N1 Transfusion of Nonautologous Red Blood Cells into Peripheral Vein, Percutaneous Approach (ICD-10-PCS; principal; 2023-10-15)
PROC: 0DB68ZX Excision of Stomach, Via Natural or Artificial Opening Endoscopic, Diagnostic (ICD-10-PCS; 2023-10-16)
PROC: 0DB98ZX Excision of Duodenum, Via Natural or Artificial Opening Endoscopic, Diagnostic (ICD-10-PCS; 2023-10-16)
PROC: 0DBM8ZX Excision of Descending Colon, Via Natural or Artificial Opening Endoscopic, Diagnostic (ICD-10-PCS; 2023-10-16)
PROC: 3E0H8KZ Introduction of Other Diagnostic Substance into Lower GI, Via Natural or Artificial Opening Endoscopic (ICD-10-PCS; 2023-10-16)
PROC: 0D1E0ZE Bypass Large Intestine to Large Intestine, Open Approach (ICD-10-PCS; 2023-10-18)
PROC: 0DBL0ZZ Excision of Transverse Colon, Open Approach (ICD-10-PCS; 2023-10-18)
PROC: 0WQF0ZZ Repair Abdominal Wall, Open Approach (ICD-10-PCS; 2023-10-18)
PROC: 0DBU0ZZ Excision of Omentum, Open Approach (ICD-10-PCS; 2023-10-18)
PROC: 05HY33Z Insertion of Infusion Device into Upper Vein, Percutaneous Approach (ICD-10-PCS; 2023-10-19)
DX: C18.4 Malignant neoplasm of transverse colon (principal); D62 Acute posthemorrhagic anemia; F84.0 Autistic disorder; K42.0 Umbilical hernia with obstruction, without gangrene; I10 Essential (primary) hypertension; K44.9 Diaphragmatic hernia without obstruction or gangrene; K29.70 Gastritis, unspecified, without bleeding; E88.09 Other disorders of plasma-protein metabolism, not elsewhere classified
CPT/HCPCS: 36410; 36415; 71045-TC; 80048-TC; 80061-TC; 80076-TC; 82272-TC; 82378; 82607-TC; 82728-TC; 82784; 82962-TC; 83540-TC; 83615-TC; 83690-TC; 83735-TC; 84100-TC; 84155; 84165; 84443-TC; 84484-TC; 85025-TC; 85027-TC; 85730-TC; 86334; 86850-TC; 88305-TC; 88313-TC; 88342; 97110-TC; 97112-TC; 97116-TC; 97530-TC; A4216; A4223; A6253; C9113; G0378; J0690; J0744; J1100; J1170; J2250; J2405; J2543; J2704; J2916; J3010; J3430; J3475; J3490; J7030; J7040; J7050; J7060; J7120; P9016; P9047; Q0163; Q9968